=== PATIENT | female | born 1940 | race Caucasian/White ===

== ENCOUNTER 2016-05-01 13:16 | Inpatient (IN) | payer OTHER ==
[~2016-05-01] VITALS: Ht 157.5 cm; Wt 84.0 kg
[~2016-05-01 13:16] MED LIST: ADVAIR HFA120 INHALA IH; AMIODARONE HCL200 MG PO; AMIODARONE HCL400 MG PO; CARDIZEM CD,CA240 MG PO; CEFTIN250 MG PO; DIGOXIN125 MCG PO; DIGOXIN250 MCG PO; DILTIAZEM 24HR240 MG PO; ENDOCET 5-3251 EACH PO; FUROSEMIDE40 MG PO; HYDROCODON-ACE1 EAC7 PO; LEVAQUIN500 MG PO; LEVOFLOXACIN750 MG PO; LIDOCAINE700 MG TD; METOPROLOL SUCC25 MG PO; PREDNISONE10 MG PO; PROVENTIL HFA6.7 GM IH; PULMICORT FLEX90 MCG IH; SPIRIVA RESPIMAT4 GM IH; TRAMADOL HCL50 MG PO; VENTOLIN HFA18 GM IH; XARELTO10 MG PO; XARELTO15 MG PO; XOPENEX1.25 MG/0. AEROSOL
[2016-05-01] MEDS ORDERED: DELTASONE20 M1 PO ×3 (13:56→15:58)
[2016-05-01] MEDS ORDERED: ROCEPHIN1000 MG IM (13:56)
[2016-05-01] MEDS ORDERED: PROBIOTIC1 EAC1 PO (14:00)
[2016-05-01] MEDS ORDERED: DUONEB 2.5-0.5 M3 ML AEROSOL ×2 (14:01→16:02)
[2016-05-01] MEDS ORDERED: MILK OF MAGN PO (14:02)
[2016-05-01] MEDS ORDERED: TYLENOL REGULA325 MG PO ×2 (14:03→16:04)
[2016-05-01 14:16] LABS: HEMATOCRIT 34.7 % (36.0-46.0); MCH 26.8 PG (29.0-34.0); MCHC 32.6 G/DL (30.0-36.0); MCV 82.2 FL (83-99); MEAN PLAT.VOLUME 9.7 uM^3 (9.5-12.4); PLATELET COUNT 454 K/uL (156-360); RBC DIS.WIDTH-CV 18.4 % (11.8-14.6); RED BLOOD COUNT 4.22 M/uL (3.80-5.20); WHITE BLOOD COUNT 19.1 K/uL (4.1-10.2)
[2016-05-01 14:17] LABS: BASE EXCESS -2.3 mEq/L (-3 to +3); BICARBONATE 23.7 mEq/L (22-26); METHEMOGLOBIN 0.9 % (0-1.5); PO2 69 mm Hg (80-100); pH 7.33 (7.35-7.45)
[2016-05-01 14:18] LABS: COMMENTS - BLOOD GASES A+C+; DEVICE NC; O2 FLOW 5 L/MIN; PCO2 45 mm Hg (35-45); SITE LR; TOTAL RESP RATE 31 resp/min
[2016-05-01 14:30] LABS: NRBC (%) 0.7 /100 WBC (0-0)
[2016-05-01 14:45] LABS: TROP-I INTERPRETATION NEGATIVE; TROPONIN-I 0.03 ng/mL (0.0-0.30)
[2016-05-01 14:52] LABS: EOSINOPHIL (%) 0 % (0-5); HEMATOLOGY COMMENT 1 SMEAR COMPATIBLE; IMMATURE GRANULOCYTE (%) 0.6 % (0.0-0.7); IMMATURE GRANULOCYTE COUNT 1.2 K/uL; LYMPHOCYTE COUNT 0.7 K/uL (1.0-2.8); MONOCYTE (%) 7.1 % (3-12); MONOCYTE COUNT 1.4 K/uL (0-0.8); NEUTROPHIL (%) 88.7 % (45-76); NEUTROPHIL COUNT 16.9 K/uL (1.8-6.4); USER ID CCL
[2016-05-01 15:02] LABS: CHLORIDE 92 mEq/L (99-109); POTASSIUM 5.3 mEq/L (3.7-5.4); SODIUM 130 mEq/L (136-147)
[2016-05-01 15:04] LABS: GLUCOSE 154 mg/dL (70-99)
[2016-05-01 15:05] LABS: ANION GAP 22 MEQ/L (2-14)
[2016-05-01 15:08] LABS: GFR ESTIMATE (CALCULATED) 14 mL/min/; UREA NITROGEN (BUN) 82 mg/dL (9-23)
[2016-05-01] MEDS ORDERED: SPIRIVA RESPIMAT4 GM IH (15:59)
[2016-05-01] MEDS ORDERED: TOPROL XL25 MG PO (16:01)
[2016-05-01] MEDS ORDERED: FLEET ENEMA-AD118 ML PR (16:03)
[2016-05-01] MEDS ORDERED: DULCOLAX10 MG PR (16:03)
[2016-05-01] MEDS ORDERED: PHILLIPS'400 MG/5 M PO (16:04)
[2016-05-01] MEDS ORDERED: ROCEPHIN1000 MG IV (16:09)
[2016-05-01 18:00] LABS: ADD MIUA? YES; BILIRUBIN NEGATIVE; BLOOD NEGATIVE; COLOR YELLOW ((YELLOW)); GLUCOSE (STRIP) NEGATIVE; KETONES NEGATIVE; LEUKOCYTES SMALL; NITRITE NEGATIVE; PROTEIN (STRIP) 30; SPECIFIC GRAVITY 1.026 (1.000-1.030); UROBILINOGEN 0.2 MG/DL (0.2-1.0)
[2016-05-01 18:17] LABS: RED BLOOD CELLS NONE SEEN /HPF (0-5)
[2016-05-01 18:18] LABS: BACTERIA 2+; CASTS NONE SEEN /LPF; CRYSTALS NONE SEEN; EPITHELIAL CELLS 2+; MUCUS NONE SEEN; UCUL ADDED? NO; WHITE BLOOD CELLS RARE /HPF (0-5)
[2016-05-01 21:16] VITALS: BP 127/81
[2016-05-02 00:13] VITALS: BP 111/71
[2016-05-02 00:54] LABS: METH RESISTANT S AUREUS PCR POSITIVE (NEGATIVE)
[2016-05-02 01:05] LABS: POINT-OF-CARE METER ID UU13113698
[2016-05-02 01:07] LABS: PROBE CHECK PASS
[2016-05-02 01:15] VITALS: BP 69/55
[2016-05-02 01:30] VITALS: BP 109/45
[2016-05-02 01:44] LABS: BASE EXCESS -13.2 mEq/L (-3 to +3); BICARBONATE 16.5 mEq/L (22-26); CARBOXY HGB 1.6 % (0-5); COMMENTS - BLOOD GASES C+; DEVICE VENTILATOR; FI02 100 %; MECHANICAL RATE 26 resp/min; METHEMOGLOBIN 1.2 % (0-1.5); MODE A/C; PCO2 57 mm Hg (35-45); PO2 167 mm Hg (80-100); SITE A LINE; TIDAL VOLUME 400 ML; TOTAL RESP RATE 26 resp/min
[2016-05-02 01:45] LABS: PEEP 5 CM/H20; pH 7.07 (7.35-7.45)
[2016-05-02 02:21] LABS: CHLORIDE 94 mEq/L (99-109); HEMATOCRIT 29.6 % (36.0-46.0); MCH 26.7 PG (29.0-34.0); MCHC 31.1 G/DL (30.0-36.0); MCV 85.8 FL (83-99); MEAN PLAT.VOLUME 10.2 uM^3 (9.5-12.4); PLATELET COUNT 342 K/uL (156-360); RBC DIS.WIDTH-CV 18.2 % (11.8-14.6); RBC DIS.WIDTH-SD 55.6 % (39-53); RED BLOOD COUNT 3.45 M/uL (3.80-5.20); SODIUM 129 mEq/L (136-147); WHITE BLOOD COUNT 15.1 K/uL (4.1-10.2)
[2016-05-02 02:22] LABS: INTER. NORMALIZED RATIO 2.1; MAGNESIUM 2.8 mg/dL (1.3-2.7); PTT 40.4 (25-32)
[2016-05-02 02:23] LABS: POTASSIUM 6.1 mEq/L (3.7-5.4)
[2016-05-02 02:25] LABS: ANION GAP 23 MEQ/L (2-14); TOTAL BILIRUBIN 0.6 mg/dL (0.0-1.0)
[2016-05-02 02:27] LABS: ALKALINE PHOSPHATASE 75 IU/L (3-129); GFR ESTIMATE (CALCULATED) 13 mL/min/
[2016-05-02 02:28] LABS: GLUCOSE 514 mg/dL (70-99); UREA NITROGEN (BUN) 84 mg/dL (9-23)
[2016-05-02 02:31] LABS: LIPASE 58 U/L (1.0-51.0)
[2016-05-02 02:37] LABS: AMYLASE 117 IU/L (1-118)
[2016-05-02 02:50] LABS: POINT-OF-CARE METER ID UU14162636
[2016-05-02 04:30] VITALS: BP 105/41
[2016-05-02 05:30] VITALS: BP 105/41
[2016-05-02 06:41] LABS: UR CREATININE CONCENTRATION 165.6 MG/DL
[2016-05-02 07:39] LABS: PROTHROMBIN TIME 21.3 (9.2-11.2)
[2016-05-02 07:48] LABS: ANION GAP 14 MEQ/L (2-14); CHLORIDE 95 MEQ/L (99-109); SAMPLE HEMOLYSIS CHECK 0; SAMPLE ICTERIC CHECK 0; SAMPLE LIPEMIA CHECK 0; TOTAL BILIRUBIN 1.3 MG/DL (0.0-1.0)
[2016-05-02 07:50] LABS: HEMATOCRIT 27.5 % (36.0-46.0); MCH 26.6 PG (29.0-34.0); MCHC 31.6 G/DL (30.0-36.0); MCV 84.1 FL (83-99); MEAN PLAT.VOLUME 10.1 uM^3 (9.5-12.4); PLATELET COUNT 302 K/uL (156-360); RBC DIS.WIDTH-CV 18.2 % (11.8-14.6); RBC DIS.WIDTH-SD 55.6 % (39-53); RED BLOOD COUNT 3.27 M/uL (3.80-5.20)
[2016-05-02 07:51] LABS: NRBC (%) ND /100 WBC (0-0); WHITE BLOOD COUNT 28.4 K/uL (4.1-10.2)
[2016-05-02 07:56] LABS: TROP-I INTERPRETATION NEGATIVE; TROPONIN-I 0.25 ng/mL (0.0-0.30)
[2016-05-02 08:02] LABS: ANION GAP 14 MEQ/L (2-14); CHLORIDE 95 MEQ/L (99-109); MAGNESIUM 2.3 mg/dl (1.3-2.7); POTASSIUM 3.9 MEQ/L (3.7-5.4); SAMPLE HEMOLYSIS CHECK 0; SAMPLE ICTERIC CHECK 0; SAMPLE LIPEMIA CHECK 0; SODIUM 149 MEQ/L (136-147); UREA NITROGEN (BUN) 75 mg/dL (9-23); URIC ACID 14.3 mg/dL (3.1-9.2)
[2016-05-02 08:03] LABS: GFR ESTIMATE (CALCULATED) 18 mL/min/; GLUCOSE 135 mg/dL (70-99); POTASSIUM 3.9 MEQ/L (3.7-5.4); SODIUM 149 MEQ/L (136-147)
[2016-05-02 08:09] LABS: ALKALINE PHOSPHATASE 102 IU/L (3-129); GFR ESTIMATE (CALCULATED) 18 mL/min/; GLUCOSE 134 mg/dL (70-99); UREA NITROGEN (BUN) 76 mg/dL (9-23)
[2016-05-02 08:20] LABS: ABS NEUTROPHIL COUNT 24.82; ANISOCYTOSIS 2+; ATYPICAL LYMPHOCYTE 0.5 %; BAND NEUTROPHILS 4.5 % (0-8.0); BASOPHIL COUNT 0.1 K/uL (0-0.1); EOSINOPHIL (%) 0 % (0-5); IMMATURE GRANULOCYTE (%) 3.8 % (0.0-0.7); IMMATURE GRANULOCYTE COUNT 1.1 K/uL; LYMPHOCYTE COUNT 1.6 K/uL (1.0-2.8); METAMYELOCYTES 1.5 %; MICROCYTOSIS 1+; MONOCYTE (%) 9.5 % (3-12); MONOCYTE COUNT 2.7 K/uL (0-0.8); NEUTROPHIL (%) 80.8 % (45-76); NEUTROPHIL COUNT 22.9 K/uL (1.8-6.4); NUCLEATED RBC'S 5.5; PLAT.SUFFICIENCY ADEQUATE; POLYCHROMASIA OCC; USER ID STC
[2016-05-02 09:00] VITALS: BP 66/55
[2016-05-02 09:11] LABS: BASE EXCESS 5.3 mEq/L (-3 to +3); CARBOXY HGB 1.9 % (0-5); METHEMOGLOBIN 1.6 % (0-1.5); PCO2 58 mm Hg (35-45)
[2016-05-02 09:12] LABS: DEVICE VENT; FI02 60 %; MECHANICAL RATE 26 resp/min; MODE AV; PEEP 5 CM/H20; PO2 66 mm Hg (80-100); SITE ALINE; TIDAL VOLUME 400 ML; TOTAL RESP RATE 26 resp/min; pH 7.35 (7.35-7.45)
[2016-05-02 09:56] LABS: PLATELET COUNT 317 K/uL (156-360)
[2016-05-02 10:47] LABS: ALKALINE PHOSPHATASE 115 IU/L (3-129); ANION GAP 12 MEQ/L (2-14); CHLORIDE 98 MEQ/L (99-109); GFR ESTIMATE (CALCULATED) 27 mL/min/; GLUCOSE 146 mg/dL (70-99); MAGNESIUM 2.3 mg/dl (1.3-2.7); POTASSIUM 3.6 MEQ/L (3.7-5.4); SAMPLE HEMOLYSIS CHECK 0; SAMPLE ICTERIC CHECK 0; SAMPLE LIPEMIA CHECK 0; SODIUM 140 MEQ/L (136-147); TOTAL BILIRUBIN 1.7 MG/DL (0.0-1.0); UREA NITROGEN (BUN) 53 mg/dL (9-23)
[2016-05-02 11:07] LABS: BASOPHIL COUNT 0.1 K/uL (0-0.1); EOSINOPHIL (%) 0 % (0-5); HEMATOCRIT 31.8 % (36.0-46.0); HEMATOLOGY COMMENT 1 SMEAR COMPATIBLE; IMMATURE GRANULOCYTE (%) 3.4 % (0.0-0.7); IMMATURE GRANULOCYTE COUNT 0.9 K/uL; LYMPHOCYTE COUNT 0.9 K/uL (1.0-2.8); MCH 26.4 PG (29.0-34.0); MCHC 31.4 G/DL (30.0-36.0); MCV 83.9 FL (83-99); MONOCYTE (%) 5.6 % (3-12); MONOCYTE COUNT 1.5 K/uL (0-0.8); NEUTROPHIL (%) 87.3 % (45-76); NEUTROPHIL COUNT 23.8 K/uL (1.8-6.4); PLAT.SUFFICIENCY ADEQUATE; RBC DIS.WIDTH-CV 18.2 % (11.8-14.6); RBC DIS.WIDTH-SD 56.3 % (39-53); RED BLOOD COUNT 3.79 M/uL (3.80-5.20); USER ID TLW; WHITE BLOOD COUNT 27.3 K/uL (4.1-10.2)
[2016-05-02 12:03] LABS: POINT-OF-CARE METER ID UU14162636
[2016-05-02 12:42] LABS: TROP-I INTERPRETATION NEGATIVE; TROPONIN-I 0.29 ng/mL (0.0-0.30)
[2016-05-02 15:53] LABS: HEMATOCRIT 31.3 % (36.0-46.0); MCH 25.9 PG (29.0-34.0); MCV 83.7 FL (83-99); MEAN PLAT.VOLUME 9.8 uM^3 (9.5-12.4); PLATELET COUNT 287 K/uL (156-360); RBC DIS.WIDTH-CV 18.6 % (11.8-14.6); RBC DIS.WIDTH-SD 56.7 % (39-53); RED BLOOD COUNT 3.74 M/uL (3.80-5.20); WHITE BLOOD COUNT 27.7 K/uL (4.1-10.2)
[2016-05-02 16:08] LABS: ANION GAP 15 MEQ/L (2-14); CHLORIDE 101 MEQ/L (99-109); MAGNESIUM 2.4 mg/dl (1.3-2.7); SAMPLE HEMOLYSIS CHECK 0; SAMPLE ICTERIC CHECK 0; SAMPLE LIPEMIA CHECK 0; SODIUM 140 MEQ/L (136-147)
[2016-05-02 16:13] LABS: GFR ESTIMATE (CALCULATED) 36 mL/min/; UREA NITROGEN (BUN) 39 mg/dL (9-23)
[2016-05-02 16:24] LABS: GLUCOSE 108 mg/dL (70-99); POTASSIUM 4.5 MEQ/L (3.7-5.4)
[2016-05-02 18:11] LABS: TROP-I INTERPRETATION INDETERMINATE; TROPONIN-I 0.34 ng/mL (0.0-0.30)
[2016-05-02 19:26] LABS: HEMATOCRIT 32.4 % (36.0-46.0); MCH 25.5 PG (29.0-34.0); MCHC 29.3 G/DL (30.0-36.0); MCV 87.1 FL (83-99); MEAN PLAT.VOLUME 10.4 uM^3 (9.5-12.4); PLATELET COUNT 307 K/uL (156-360); RBC DIS.WIDTH-CV 18.7 % (11.8-14.6); RBC DIS.WIDTH-SD 59.8 % (39-53); RED BLOOD COUNT 3.72 M/uL (3.80-5.20)
[2016-05-02 19:56] LABS: ALKALINE PHOSPHATASE 141 IU/L (3-129); ANION GAP 20 MEQ/L (2-14); CHLORIDE 104 MEQ/L (99-109); DIRECT BILIRUBIN 1.2 mg/dL (0.0-0.3); GFR ESTIMATE (CALCULATED) 31 mL/min/; GLUCOSE 61 mg/dL (70-99); MAGNESIUM 2.7 mg/dl (1.3-2.7); POTASSIUM 6.1 MEQ/L (3.7-5.4); SAMPLE HEMOLYSIS CHECK 0; SAMPLE ICTERIC CHECK 0; SAMPLE LIPEMIA CHECK 0; SODIUM 139 MEQ/L (136-147); TOTAL BILIRUBIN 2.3 MG/DL (0.0-1.0); UREA NITROGEN (BUN) 38 mg/dL (9-23)
[2016-05-02 20:13] LABS: PROTHROMBIN TIME 31.1 (9.2-11.2); PTT 77.9 (25-32)
[2016-05-02 22:12] LABS: MEAN PLAT.VOLUME 10.4 uM^3 (9.5-12.4); PLATELET COUNT 272 K/uL (156-360)
[2016-05-02 22:28] LABS: HEMATOCRIT 31.3 % (36.0-46.0); MCH 26.3 PG (29.0-34.0); MCV 84.8 FL (83-99); RBC DIS.WIDTH-CV 18.6 % (11.8-14.6); RBC DIS.WIDTH-SD 57.4 % (39-53); RED BLOOD COUNT 3.69 M/uL (3.80-5.20); WHITE BLOOD COUNT 31.9 K/uL (4.1-10.2)
[2016-05-02 22:29] LABS: ANION GAP 11 MEQ/L (2-14); CHLORIDE 103 MEQ/L (99-109); MAGNESIUM 2.3 mg/dl (1.3-2.7); POTASSIUM 4.9 MEQ/L (3.7-5.4); SAMPLE HEMOLYSIS CHECK 0; SAMPLE ICTERIC CHECK 1; SAMPLE LIPEMIA CHECK 0; SODIUM 136 MEQ/L (136-147)
[2016-05-02 22:34] LABS: GFR ESTIMATE (CALCULATED) 26 mL/min/; UREA NITROGEN (BUN) 44 mg/dL (9-23)
[2016-05-02 22:50] LABS: GLUCOSE 149 mg/dL (70-99)
[2016-05-03] VITALS: BP 124/41
[2016-05-03 04:12] VITALS: BP 80/45
[2016-05-03 04:36] LABS: HEMATOCRIT 28.9 % (36.0-46.0); MCH 26.5 PG (29.0-34.0); MCHC 30.4 G/DL (30.0-36.0); MEAN PLAT.VOLUME 9.2 uM^3 (9.5-12.4); PLATELET COUNT 192 K/uL (156-360); RBC DIS.WIDTH-CV 18.8 % (11.8-14.6); RBC DIS.WIDTH-SD 57.3 % (39-53); RED BLOOD COUNT 3.32 M/uL (3.80-5.20); WHITE BLOOD COUNT 27.8 K/uL (4.1-10.2)
[2016-05-03 04:39] LABS: POINT-OF-CARE METER ID UU13113803
[2016-05-03 04:47] LABS: INTER. NORMALIZED RATIO 3.8; PROTHROMBIN TIME 40.7 (9.2-11.2)
[2016-05-03 04:48] LABS: SODIUM 137 mEq/L (136-147)
[2016-05-03 04:49] LABS: SODIUM 137 mEq/L (136-147)
[2016-05-03 04:52] LABS: ANION GAP 18 MEQ/L (2-14)
[2016-05-03 04:53] LABS: ANION GAP 18 MEQ/L (2-14); CHLORIDE 109 mEq/L (99-109); GLUCOSE 54 mg/dL (70-99)
[2016-05-03 04:55] LABS: UREA NITROGEN (BUN) 24 mg/dL (9-23)
[2016-05-03 04:55] LABS: POTASSIUM 6.5 mEq/L (3.7-5.4)
[2016-05-03 04:56] LABS: CHLORIDE 108 mEq/L (99-109); GFR ESTIMATE (CALCULATED) 46 mL/min/; GLUCOSE 54 mg/dL (70-99); POTASSIUM 6.3 mEq/L (3.7-5.4)
[2016-05-03 04:57] LABS: MAGNESIUM 2.3 mg/dL (1.3-2.7)
[2016-05-03 04:57] LABS: ALKALINE PHOSPHATASE 192 IU/L (3-129); GFR ESTIMATE (CALCULATED) 46 mL/min/; TOTAL BILIRUBIN 3.9 mg/dL (0.0-1.0); UREA NITROGEN (BUN) 25 mg/dL (9-23)
[2016-05-03 06:29] LABS: POINT-OF-CARE METER ID UU13113803
[2016-05-03 08:07] LABS: BASE EXCESS -16.6 mEq/L (-3 to +3); BICARBONATE 11.4 mEq/L (22-26); DEVICE 840; FI02 80 %; MECHANICAL RATE 28 resp/min; METHEMOGLOBIN 1.5 % (0-1.5); MODE AC; PCO2 35 mm Hg (35-45); PO2 116 mm Hg (80-100); SITE ALINE; TOTAL RESP RATE 28 resp/min; pH 7.12 (7.35-7.45)
[2016-05-03 08:08] LABS: COMMENTS - BLOOD GASES A+C+; PEEP 10 CM/H20; TIDAL VOLUME 400 ML
[2016-05-03 10:41] LABS: HEMATOCRIT 19.8 % (36.0-46.0); MCH 26.8 PG (29.0-34.0); MCHC 30.8 G/DL (30.0-36.0); MCV 87.4 FL (83-99); MEAN PLAT.VOLUME 10.9 uM^3 (9.5-12.4); RBC DIS.WIDTH-CV 19.3 % (11.8-14.6); RBC DIS.WIDTH-SD 60.3 % (39-53)
[2016-05-03 10:45] LABS: DELETE MACHINE DIFF? YES; PLATELET COUNT 91 K/uL (156-360); RED BLOOD COUNT 2.28 M/uL (3.80-5.20); WHITE BLOOD COUNT 16.8 K/uL (4.1-10.2)
[2016-05-03 10:47] LABS: ANION GAP 30 MEQ/L (2-14); CHLORIDE 99 MEQ/L (99-109); GFR ESTIMATE (CALCULATED) 42 mL/min/; GLUCOSE 70 mg/dL (70-99); MAGNESIUM 2.6 mg/dl (1.3-2.7); SAMPLE HEMOLYSIS CHECK 0; SAMPLE ICTERIC CHECK 0; SAMPLE LIPEMIA CHECK 0; SODIUM 161 MEQ/L (136-147); UREA NITROGEN (BUN) 26 mg/dL (9-23)
[2016-05-03 10:48] LABS: POTASSIUM 7.4 MEQ/L (3.7-5.4)
[2016-05-03 10:49] LABS: ABS NEUTROPHIL COUNT 14.62; ANISOCYTOSIS OCC; EOSINOPHIL ABS CT 0.17; HYPOCHROMASIA OCC; PLAT.SUFFICIENCY DECREASED; POLYCHROMASIA OCC; USER ID CL
== END 2016-05-03 10:10 | DRG 208 ==
LOC: EME 13:16 → 4WEST 15:50 → EDOF 15:50 → 4WEST 15:50 → 4EAST 20:15 → 4WEST 05-02 00:57
PROVIDERS: Emergency Medicine; Internal Medicine; Internal Medicine Nephrology
PROC: 5A1945Z Respiratory Ventilation, 24-96 Consecutive Hours (ICD-10-PCS; principal; 2016-05-02)
PROC: 5A1223Z Performance of Cardiac Pacing, Continuous (ICD-10-PCS; 2016-05-02)
PROC: 04HK33Z Insertion of Infusion Device into Right Femoral Artery, Percutaneous Approach (ICD-10-PCS; 2016-05-02)
PROC: 5A1D60Z (ICD-10-PCS; 2016-05-02)
PROC: 05HN33Z Insertion of Infusion Device into Left Internal Jugular Vein, Percutaneous Approach (ICD-10-PCS; 2016-05-02)
PROC: 02HV33Z Insertion of Infusion Device into Superior Vena Cava, Percutaneous Approach (ICD-10-PCS; 2016-05-02)
DX: J18.9 Pneumonia, unspecified organism (principal); N17.0 Acute kidney failure with tubular necrosis; J96.01 Acute respiratory failure with hypoxia; J44.1 Chronic obstructive pulmonary disease with (acute) exacerbation; E87.2 Acidosis; E87.1 Hypo-osmolality and hyponatremia; I44.2 Atrioventricular block, complete; I50.30 Unspecified diastolic (congestive) heart failure; I95.9 Hypotension, unspecified; I46.9 Cardiac arrest, cause unspecified; N18.3 Chronic kidney disease, stage 3 (moderate); I44.7 Left bundle-branch block, unspecified; E86.0 Dehydration; I48.2 Chronic atrial fibrillation; I51.7 Cardiomegaly; E87.5 Hyperkalemia; I12.9 Hypertensive chronic kidney disease with stage 1 through stage 4 chronic kidney disease, or unspecified chronic kidney disease; I27.2 Other secondary pulmonary hypertension; Z60.2 Problems related to living alone; Z87.891 Personal history of nicotine dependence; Z99.81 Dependence on supplemental oxygen
CPT/HCPCS: 31500; 36600; 71010; 76770; 80048; 80048 91; 80053; 80069; 80202; 81003; 82150; 82248; 82330; 82436; 82570; 82803; 82948; 83605; 83690; 83735; 83935; 84100; 84133; 84300; 84484; 84540; 84550; 85025; 85025 91; 85027; 85610; 85730; 86850; 86900; 86901; 87040; 87070; 87077; 87106; 87147; 87186; 87205; 87641; 92950; 93005; 94002; 94003; 94640; 94640 76; 94644; 94799; 99202; 99281; 99285; C1752; C1769; C1779; C1788; C1894; J0171; J0282; J0461; J0692; J1644; J1815; J1940; J2930; J3010; J3370; J7030; J7050; J7070; J7644; P9045; S0028